=== PATIENT | male | born 1940 | race Caucasian/White ===

== ENCOUNTER 2018-12-02 05:15 | Inpatient (IN) ==
[2018-11-14 11:19] LABS: HEMATOCRIT 37.9 % (42.0-52.0); HEMOGLOBIN 11.8 g/dL (14.0-18.0); MCH 29.4 PG (27-31); MCHC 31.1 g/dL (33-37); MCV 94.3 FL (81-99); RBC 4.02 XMIL (4.7-6.1); RDW 13.8 % (11.5-14.5); WBC 6.89 X1000 (4.8-10.8)
[2018-11-14 11:43] LABS: CREATININE 1.9 mg/dL (0.7-1.2); POTASSIUM 3.9 mmol/L (3.5-5.1)
[2018-12-02] MEDS ORDERED: KEFZOL 1 GM/D5W 1 GM/50 ML IVPB ONE (05:33)
[2018-12-02] MEDS ORDERED: LR 1,000 ML ONE ×2 (05:48→06:24)
[2018-12-02] MEDS ORDERED: MARCAINE 0.25% PF/EPI 1:200,000 ONE (06:24)
[2018-12-02] MEDS ORDERED: B & O 15A SUPP ONE (06:24)
[2018-12-02] MEDS ORDERED: DIPRIVAN 1% ONE (06:27)
[2018-12-02] MEDS ORDERED: ROBINUL ONE (06:56)
[2018-12-02] MEDS ORDERED: SODIUM CHLORIDE 0.9% 10 ML ONE ×2 (07:13→09:59)
[2018-12-02] MEDS ORDERED: NORCURON ONE ×2 (07:13→09:59)
[2018-12-02] MEDS ORDERED: XYLOCAINE-MPF 2% ONE (07:13)
[2018-12-02] MEDS ORDERED: QUELICIN (DOSE) ONE (07:13)
[2018-12-02] MEDS ORDERED: DECADRON ONE (07:13)
[2018-12-02] MEDS ORDERED: ZOFRAN ONE (07:13)
[2018-12-02] MEDS ORDERED: FENTANYL ONE (07:19)
[2018-12-02] MEDS ORDERED: OFIRMEV 1000 MG/ISOTONIC SOLN 1,000 MG/100 ML BOTTLE ONE (08:55)
[2018-12-02] MEDS ORDERED: OFIRMEV 1000 MG/ISOTONIC SOLN 1,000 MG/100 ML BOTTLE IV PRN (10:32)
[2018-12-02 11:15] LABS: URINE SOURCE CATH
[2018-12-02 11:22] LABS: BILIRUBIN URINE NEGATIVE (NEGATIVE); BLOOD URINE MODERATE (NEGATIVE); COLOR STRAW; GLUCOSE URINE NEGATIVE (NEGATIVE); KETONE URINE NEGATIVE (NEGATIVE); LEUKOCYTES URINE NEGATIVE (NEGATIVE); NITRITE URINE NEGATIVE (NEGATIVE); PROTEIN URINE NEGATIVE (NEGATIVE); SP GRAVITY URINE 1.003; TURBIDITY URINE CLEAR (CLEAR); UROBILINOGEN URINE NORMAL (NORMAL)
[2018-12-02 11:23] LABS: UR EPITHELIAL CELLS <10 /HPF (<10); URINE BACTERIA NEGATIVE /HPF; URINE WBC <10 /HPF (<10)
[2018-12-02] MEDS ORDERED: MORPHINE IV PRN (12:27)
[2018-12-02] MEDS ORDERED: LABETALOL IV PRN (12:30)
[2018-12-02] MEDS ORDERED: SODIUM CHLORIDE 0.9% INJ PRN (12:30)
[2018-12-02] MEDS ORDERED: OXY IR PO PRN (12:30)
[2018-12-02] MEDS ORDERED: PHENERGAN IV PRN (12:30)
[2018-12-02] MEDS ORDERED: DITROPAN PO PRN (12:30)
[2018-12-02] MEDS ORDERED: BENADRYL LIQUID PO PRN (12:30)
[2018-12-02] MEDS ORDERED: KEFZOL 1 GM/D5W 1 GM/50 ML IVPB IV ONE ×2 (13:00→21:00)
[2018-12-02] MEDS: LR 1,000 ML IV SCH ×2 (13:32→20:44)
[2018-12-02] MEDS ORDERED: PNEUMOVAX 23 IM ONE (14:00)
--- NOTE | 2018-12-02 14:21 | OPERATIVE NOTE ---
PROCEDURE DATE: 12/02/2018 SURGEON: Jones Garcia MD. Curtain Mender Surgeon: Ishaan Diaz MD. PREOPERATIVE DIAGNOSIS: Prostate cancer. POSTOPERATIVE DIAGNOSIS: Prostate cancer. PROCEDURE PERFORMED: Laparoscopic robot-assisted radical retropubic prostatectomy with modified bilateral pelvic lymph node dissection. ANESTHESIA: General endotracheal. FINDINGS: Normal appearing prostate with attached seminal vesicles and ampulla of the vas deferens. The prostate was somewhat adhered on the left side to the periprostatic tissue and rectal area. Bilateral obturator lymph nodes appeared normal. INDICATION FOR PROCEDURE: This 78-year-old male has a history of elevated PSA. Prostate ultrasound and biopsies revealed adenocarcinoma, Blu grade 3 + 3 in several cores from the right side and [place] 3 + 4 in 5 of 6 cores from the left side. The various treatments for prostate cancer was discussed with the patient and and they decided on radical surgery. DESCRIPTION OF PROCEDURE: After informed consent was obtained from the patient, him receiving IV antibiotics, he was taken the main OR, placed in the supine position. General endotracheal anesthesia was achieved. He was then placed in the low lithotomy position and prepped and draped in the usual sterile fashion for abdominal, penile and perineal surgery. A 18- Upper Sorbian Nixon catheter was passed through the patient's urethra, prostate, and into the bladder. 10 mL sterile water placed in Nixon balloon. The Nixon was placed to gravity drain. Pneumoperitoneum was achieved through the umbilicus using the Veress needle. After the water drop test appeared normal, pneumoperitoneum was achieved to 15 cm of water using CO2. A incision just above the umbilicus about 3 cm was made. A 12 mm port was placed using the Visiport. After this was placed, the robot trocars were placed with the #4 arm just above the right anterior superior iliac spine, the #1 arm 1 handbreadth to the right of the camera port and the #2 arm about 1-1/2 handbreadths to the left of the camera port. A 12 mm graduate teaching assistant port was placed in the left epigastric area. After ports were placed, the table was lowered all the way down and placed in steep Trendelenburg. The robot was docked. The procedure was started by taking down physiologic adhesions of the left sigmoid colon. An incision was made in the peritoneum as it reflected off the colon a distance of about 2 cm above the reflection. This was taken back to the space between the rectum and bladder where the seminal vesicles and vas deferens were visualized. These were bluntly and sharply dissected free. The vas deferens was incised using the electrocautery. The artery to the vas was likewise cauterized. The pedicles to the seminal vesicles were taken down with a clip and the seminal vesicle was dissected free all the way back to the base of the prostate. Denonvilliers fascia was entered at the base of the prostate and this incision was extended laterally for several centimeters. Attention was then turned to the anterior abdominal wall where an incision was made in the peritoneum just medial to the right internal inguinal ring. This incision was extended up onto the anterior abdominal wall and down past the vas deferens. The left side was accomplished similarly. The medial umbilical ligaments were incised on the anterior abdominal wall as well as the median umbilical ligament. The bladder was dropped off of the posterior surface of the abdominal wall. All fibrofatty tissue was removed from the anterior and lateral sides of the prostate. This exposed the endopelvic fascia. This was entered lateral to the prostate and extended back to the base of the prostate and up to the puboprostatic ligaments. Again, both sides were accomplished similarly. The levator ani muscles were pushed off the sides of the prostate. Again on the left side it felt somewhat adhered. After the puboprostatic ligaments were taken down, a 0 V-Loc suture was passed under the dorsal vein complex and the needle was passed through the eye of the tail of the suture and pulled tight. The suture was then passed back under the dorsal vein complex and the dorsal vein complex was ligated. The suture was then passed through the periosteum of the pubis, back under the dorsal vein complex, then back through the periosteum of the pubis. The needle was detached and removed from the body. Attention was then turned to the base of the prostate at the prostatic vesicular junction and the Bovie electrocautery was used to incise this area. The bladder was entered. The Nixon catheter was brought through the cystotomy and used as a traction device. The posterior bladder neck was incised and the bladder was sharply dissected off the base of the prostate. The previously dissected space at the seminal vesicles and vas deferens were entertained and they were then brought up through this incision and the incision in the vesicovisceral fascia was extended laterally. The prostate pedicles were taken down with clips both sides accomplished similarly and the prostate was bluntly and sharply dissected off of the rectum down to the apex. The portion of the dorsal vein complex that spread over the apex of the prostate was cauterized with the bipolar cautery and incised. This exposed the urethra. The urethra was incised 2 mm distal to the prostatic apex. The Nixon was exposed and pulled back such that the posterior urethra was visualized. This was incised and then the remaining fibers of the posterior rhabdosphincter were incised and the prostate was moved to the side. The modified bilateral pelvic lymph node dissection was then performed. The limits of dissection were the medial side of the external iliac vein, distally the node of [place], posteriorly was the obturator nerve and superiorly was the bifurcation of the external and internal iliac veins. Hemostasis then lymphostasis was achieved electrocautery and clips. Both sides were accomplished similarly. The specimens were sent separately to Pathology. The prostate and left pelvic lymph nodes were placed in an EndoCatch bag and moved to the side. The right pelvic lymph nodes were removed and sent to Pathology in its own container. The pelvis was then irrigated. The vesicovisceral fascia was reattached to the posterior rhabdosphincter with a running suture of 3-0 V-Loc suture. The bladder was anastomosed to the urethra with a running suture of 3-0 V-Loc suture. The double arm suture that was used to anastomose the vesicovisceral fascia to the posterior rhabdosphincter the needles on each end were then passed through the periosteum of the pubis and tension was placed on the sutures to act as a urethral suspension. All needles were passed out of the body and the needle count was correct. Pneumoperitoneum was dropped to 3 cm of water. No bleeding areas were placed. Surgicel SNoW was packed into the obturator fossa on each side at the site of the node dissections. He tolerated the procedure well. Estimated blood loss was 125 mL. The robot was then undocked and the patient returned to the supine position. The camera port incision was extended for about another centimeter to be 4 cm in length. The specimen was delivered without difficulty and passed off the field. The abdominal rectus fascia was reapproximated with interrupted sutures of #1 Maxon. The knots on the suture were buried by placing subcutaneous sutures of 3-0 Vicryl. The skin was reapproximated with clips. Island dressings were placed. The Nixon catheter irrigated without difficulty and the efflux was light pink in color. He was extubated and taken to the recovery room in good condition. A 15-A B and O suppository was placed at completion of the procedure. cc: Jones Garcia MD MTDD
[2018-12-02] MEDS: PEPCID PO SCH (19:38)
[2018-12-02] MEDS: PERIDEX MT SCH (19:38)
[2018-12-02] MEDS: COLACE PO SCH (19:39)
[2018-12-03] MEDS: COLACE PO SCH ×3 (01:54→20:58)
[2018-12-03] MEDS: LR 1,000 ML IV SCH ×3 (01:54→20:58)
[2018-12-03] MEDS: PEPCID PO SCH ×3 (01:55→20:58)
[2018-12-03] MEDS: PERIDEX MT SCH ×3 (01:55→20:58)
[2018-12-03 06:37] LABS: HEMATOCRIT 35.9 % (42.0-52.0); MCH 30.4 PG (27-31); MCHC 30.6 g/dL (33-37); MCV 99.2 FL (81-99); MPV 11.2 FL (7.4-10.4); RBC 3.62 XMIL (4.7-6.1); RDW 13.7 % (11.5-14.5); WBC 10.13 X1000 (4.8-10.8)
[2018-12-03 07:32] LABS: POTASSIUM 6.6 mmol/L (3.5-5.1)
[2018-12-03 07:33] LABS: CALCIUM 8.1 mg/dL (8.8-10.2); CREATININE 1.8 mg/dL (0.7-1.2)
[2018-12-03] MEDS: OXY IR PO PRN ×2 (08:18→12:38)
[2018-12-03] MEDS: NORVASC PO SCH (08:19)
[2018-12-03] MEDS ORDERED: VELTASSA PO ONE (10:02)
[2018-12-03] MEDS ORDERED: SODIUM BICARBONATE 8.4% 50 MEQ in D5W 1,000 ML IV SCH (10:15)
[2018-12-03 15:24] LABS: CALCIUM 8.1 mg/dL (8.8-10.2); CREATININE 1.8 mg/dL (0.7-1.2); POTASSIUM 5.7 mmol/L (3.5-5.1)
[2018-12-03] MEDS ORDERED: OXY IR PO PRN (16:49)
--- NOTE | 2018-12-03 16:52 | CONSULTATION ---
DATE OF CONSULTATION: 12/03/2018 HISTORY OF PRESENT ILLNESS: He is a patient of Dr. Duran Garcia. A 78-year-old who noticed blood in his urine several days ago never occurred before. Passed a kidney stone. Denied any flank pain. PSA was 7.6 a week ago per his family physician and as far as he knows it has always been normal. His states that he has had some weight loss. He has not had any urologic surgery. He has had some obstructive voiding symptoms. States that his family doctor put him on a Flomax several weeks ago and it is helping. He has been treated for urinary tract infection last year. He is status post transrectal prostate ultrasound and biopsies in October 2018 revealed adenocarcinoma, [place] score of 3+ 3 in the right side of the prostate, multiple cores of 3+ 4 in almost every core from left side of the prostate. His bone scan was negative for metastatic disease. He and his state that they have not been able to reveal the pathological report but decided on radical retropubic prostatectomy. PAST MEDICAL HISTORY: Acid reflux, benign prostatic hypertrophy with obstruction, elevated prostate-specific antigen, hypertension, and urinary tract infection in the past. PAST SURGICAL HISTORY: No surgical history. MEDICATIONS: Amlodipine and Flomax and that is really it. ALLERGIES: No known drug allergies. FAMILY HISTORY: Unremarkable. SOCIAL HISTORY: No alcohol. He smokes 1 pack per day. No recreational drugs. REVIEW OF SYSTEMS: General: No fever or chills. HEENT: No headache. No double vision. No change in vision or hearing acuity. No sore throat or upper airway symptoms. Cardiovascular: No chest pain or tachy palpitations. Respiratory: No increased work of breathing or dyspnea. GI: No nausea, vomiting. : As mentioned above. Symptoms of lower prostate, benign prostatic hypertrophy, and he has had some hematuria and elevated PSA with a biopsy revealing adenocarcinoma. Skin: No rashes reported. Neurologic: No focal complaints. No paresthesias or history of seizures. Musculoskeletal: No focal complaints. Endocrinologic/Hematologic: No significant history. Psychiatric: No psychiatric history reported such as anxiety, depression. PHYSICAL EXAMINATION: Vital Signs: On presentation, well-developed, well-nourished, white male with no acute distress. HEENT: Pupils are equal and round. Lungs: Clear in all lung tate. Cardiovascular: Regular rhythm and rate without murmur or S3. Abdomen: Soft. Skin: Warm and dry. He is postop retropubic laparoscopic robotic assisted radical prostatectomy with modified bilateral pelvic lymph node dissection. Has been doing well. I was asked to look at him because his potassium was running high today and he was on lactated Ringer's. It was 6.6, on recheck it was 6.8. I gave him 1 dose of Veltassa 8.4 mg p.o. and 1 amp of bicarbonate. His renal function looks good. Creatinine 1.8 and his volume status looked good. He is not on any medications that would cause his potassium to go up. Potassium came down to 5.7 and he looks good and I felt he could go home, so he will continue at home on the same medications. He is on Colace 100 mg p.o. b.i.d., Pepcid 20 mg b.i.d., and he was getting Oxy IR for pain PLAN: I think he is okay for discharge. cc: MD Jones Ferrell MD
--- NOTE | 2018-12-03 17:19 | Diag Imaging Result Doc PS360 ---
EXAM: CHEST-PORTABLE HISTORY: Hypoxia TECHNIQUE: Chest single view COMPARISON: 02/18/2018 FINDINGS: The lungs are well expanded. The heart is not enlarged. The vessels are not distended. There are basilar infiltrates. No effusion identified. IMPRESSION: Basilar infiltrates, left greater than right Electronically signed by Adan Selby 12/03/2018 5:17 PM
[2018-12-03 17:57] LABS: ALLEN TEST YES; BE 2.2 mmoll (-3.0-3.0); BLOOD TYPE ARTERIAL; HCO3-(ACT) 26.4 mmoll (20.0-26.0); METHB 0.4 % (0.0-1.5); O2(CT) 11.2 mL/dL (15.0-23.0); SAMPLE BLOOD; SAO2 90.1 % (95.0-100.0); THB 9.3 g/dL (11.5-17.4); pH(98.6) 7.31 (7.35-7.45)
[2018-12-03 17:58] LABS: MODALITY ROOM AIR
[2018-12-03 17:59] LABS: PCO2(98.6) 58 mmHg (35-45)
[2018-12-03 18:00] LABS: O2HB 85.4 % (95.0-99.0); PO2(98.6) 42 mmHg (60-100)
[2018-12-04 08:07] LABS: CALCIUM 7.8 mg/dL (8.8-10.2); CREATININE 1.8 mg/dL (0.7-1.2); MAGNESIUM 1.8 mg/dL (1.5-2.7); POTASSIUM 5.9 mmol/L (3.5-5.1)
[2018-12-04] MEDS ORDERED: VELTASSA PO ONE (09:06)
[2018-12-04] MEDS: PERIDEX MT SCH (09:18)
[2018-12-04] MEDS: NORVASC PO SCH (09:18)
[2018-12-04] MEDS: COLACE PO SCH (09:18)
[2018-12-04] MEDS: PEPCID PO SCH (09:18)
--- NOTE | 2018-12-04 09:23 | PROGRESS NOTE ---
DATE: 12/04/2018 SUBJECTIVE: He is awake. He had a little confusion yesterday. I think this is related to his opioid pain medicines. He is breathing comfortably. PHYSICAL EXAMINATION: Vitals: Temperature 98.3 degrees, pulse 59, respirations 20, blood pressure 158/70. Pupils are equal and round. Lungs are clear in all lung tate. Cardiovascular Examination: Regular rhythm and rate without murmur or S3. Urine output is 3500 mL. LABORATORY DATA: Chest x-ray, he has bibasilar I think some atelectasis, left greater than the right. No effusion appreciated. He seems to be breathing much more comfortably. The patient and family really want to go home. He has remained afebrile. He has sodium 139, potassium 5.9, chloride 107, BUN 17, creatinine 1.8. I am going to give him another dose of Veltassa but I think he can go home today. His basilar lung tate, I want him to continue to do incentive spirometry and keep his lungs expanded. DISCHARGE MEDICATIONS: Looks like he will be on Norvasc 5 mg a day, Pepcid 20 mg twice a day, Colace 100 mg b.i.d., and I think I would keep him on minimum pain medicine using Oxy IR 5 mg maybe one q.6 hours p.r.n. cc: MD Jones Ferrell MD
--- NOTE | 2018-12-04 10:42 | Diag Imaging Result Doc PS360 ---
EXAM: CHEST-PORTABLE INDICATION: bibasilar infiltrates TECHNIQUE: One view COMPARISON: 12/03/2018 FINDINGS: The mild basilar opacities suggesting atelectasis and/or infiltrate bilaterally are unchanged. No new consolidation is identified. Cardiac silhouette is stable. IMPRESSION: Stable chest. Electronically signed by Herberth Mosley 12/04/2018 10:40 AM
[2018-12-04 11:36] VITALS: BP 155/66
== END 2018-12-04 15:03 | disposition home or self-care (01) | DRG 708 ==
LOC: 4N 05:15 → OR 05:15
PROVIDERS: ADMIT Urology; ATTEND Urology
CPT/HCPCS: 71010; 71045; 80048; 81001; 82805; 83735; 84132; 85027; 88305; 88309; 93005; 94660; 94761; 94799; A9270; J0131; J0330; J0690; J1100; J2270; J2405; J3010; J7070; J7120; S2900